=== PATIENT | female | born 1955 | race Caucasian/White ===

== ENCOUNTER 2020-07-23 13:22 | Emergency (ER) | payer MEDICARE, OTHER ==
[~2020-07-23] VITALS: Ht 170.1 cm; Wt 60.9 kg
[2020-07-23] MEDS ORDERED: LIDOCAINE 1% INJ 20 ML 20 ML VIAL ONE (13:47)
--- NOTE | 2020-07-23 13:50 | ED Lower Extremity ---
General Chief Complaint: Laceration Stated Complaint: LACERATION R LEG Source: patient Exam Limitations: no limitations History of Present Illness Date Seen by Provider: Jul 23, 2020 Time Seen by Provider: 13:45 Initial Comments Patient is a 65-year-old female who presents to the emergency department today with a chief complaint of laceration to her right anterior vieira on ice of metal had a local attraction. She states the piece of metal did not cut her jeans but just her skin in the distal right vieira. She denies any other complaints of illness or injury. She had immediate bleeding at the site. She presents for laceration repair. All other review of systems reviewed and negative except as stated above. Onset: just prior to arrival Severity: mild Pain/Injury Location: right leg Method of Injury: incised Allergies and Home Medications Allergies Coded Allergies: No Known Drug Allergies (Unverified , 07/23/20) Patient Home Medication List Home Medication List Reviewed: Yes Review of Systems Constitutional: no symptoms reported EENTM: no symptoms reported Respiratory: no symptoms reported Cardiovascular: no symptoms reported Gastrointestinal: no symptoms reported Musculoskeletal: other (Laceration noted to the right anterior vieira distal third) Skin: other (Laceration 7 cm in length angulated over the distal right anterior vieira minimal active bleeding noted extends through subcutaneous tissues "sheared") Past [id number]-[id number]-[id number] Hx Patient Social History Recent Foreign Travel: No Contact w/Someone Who Travel: No Physical Exam Vital Signs Capillary Refill : Height, Weight, BMI Height: '" Weight: lbs. oz. kg; BMI Method: General Appearance: WD/WN, no apparent distress Neck: full range of motion Cardiovascular: regular rate, rhythm Respiratory: normal breath sounds, no respiratory distress, no accessory muscle use Hips: bilateral hip non-tender, bilateral hip normal inspection Legs: left leg non-tender; right leg other (Laceration, angulated 7 cm of the distal right anterior vieira) Knees: bilateral knee non-tender, bilateral knee normal inspection, bilateral knee normal range of motion, bilateral knee no evidence of injury Ankles: bilateral ankle non-tender, bilateral ankle normal inspection, bilateral ankle normal range of motion Feet: bilateral foot non-tender, bilateral foot normal range of motion Neurologic/Tendon: normal sensation, normal motor functions, normal tendon functions Neurologic/Psychiatric: alert, normal mood/affect, oriented x 3 Skin: warm/dry, other (See extremity exam) Progress/Results/Core Measures Results/Orders My Orders Orders - MADISON FOX MD Dipht,Pertuss(Acell),Tet Adult (Boostrix (07/23/20 14:15) Progress Progress Note : Time: 14:39 Progress Note 65-year-old female presents to the emergency department today with a chief co mplaint of laceration to the right anterior vieira evaluation today with a physical exam. After identification of the laceration and appropriate anesthesia with 1% lidocaine, 4 cc a 4-0 Ethilon suture was used to place 8 stitches to the wound. 3 horizontal mattress and 5 simple interrupted. Patient tolerated the procedure well. Good hemostasis was achieved. The wound came together very nicely. Patient was educated on local wound care. She verbalizes understanding, all questions are sought and answered and she is stable for discharge. Departure Impression Primary Impression: Laceration of right lower leg Disposition: 01 HOME, SELF-CARE Condition: Stable Departure-Patient Inst. Decision time for Depature: 14:42 Patient Instructions: Laceration Repair With Stitches (DC) Add. Discharge Instructions: Keep the wound clean dry and covered for the first 3 or 4 days. You can apply Neosporin to the wound with a dry dressing. Wash gently with soap and water. Do not soak the wound in a bath. The stitches will need to be removed in about 10 to 14 days. Please come back to the emergency department if you have any increased redness pain, drainage from the wound or other emergent concerning symptoms. MADISON FOX MD Jul 23, 2020 13:50
[2020-07-23] MEDS ORDERED: TETANUS,DIPTH,PERTUSS P/F (BOOSTRIX) 0.5 ML VIAL IM ONE (14:15)
[2020-07-23 15:06] VITALS: BP 135/63
== END 2020-07-23 15:06 | disposition home or self-care (01) ==
LOC: ER 13:33
DX: S81.811A Laceration without foreign body, right lower leg, initial encounter (principal); Z23 Encounter for immunization; W26.8XXA Contact with other sharp object(s), not elsewhere classified, initial encounter
CPT/HCPCS: 12002; 90715